=== PATIENT | male | born 1985 | race Two or more races ===

== ENCOUNTER 2018-10-09 06:15 | Observation (INO) | payer OTHER ==
[2018-10-09] VITALS (10 sets, daily range): BP systolic 108–132; BP diastolic 56–89
[~2018-10-09] VITALS: Ht 167.6 cm; Wt 135.6 kg
[2018-10-09] MEDS ORDERED: Dexamethasone 20mg/5ml IVP ONE (07:00)
[2018-10-09] MEDS ORDERED: ceFAZolin sod 1 GM in NS 55 ML IVPB ONE (07:00)
[2018-10-09] MEDS ORDERED: AMLODIPINE BES2.5 MG ORAL (07:32)
[2018-10-09] MEDS ORDERED: LR 1000ml 1,000 ML IVLG SCH (08:18)
--- NOTE | 2018-10-09 08:21 | Anethesia Preoperative Eval ---
Anesthesia Pre-op PMH/ROS General Date of Evaluation: Oct 09, 2018 Time of Evaluation: 09:27 Anesthesiologist: Isaias ASA Score: ASA 3 Mallampati Score Class I : Soft palate, uvula, fauces, pillars visible Class II: Soft palate, uvula, fauces visible Class III: Soft palate, base of uvula visible Class IV: Only hard plate visible Mallampati Classification: Class III Surgeon: Kiki Diagnosis: Back Pain Surgical Procedure: L4-S1 Microdiscectomy Anesthesia History: none Family History: no anesthesia problems Allergies: Coded Allergies: No Known Allergies (Unverified , 10/08/18) Medications: see eMAR Patient NPO?: Yes NPO Date: Oct 09, 2018 NPO Time: 2229 Past Medical History Cardiovascular: Reports: HTN Pulmonary: Reports: YOBANY - CPAP Gastrointestinal/Genitourinary: Reports: other - Fatty Liver Other: obesity - BMI 48 Anesthesia Pre-op Phys. Exam Physician Exam Last Vital Signs Date Time Temp Pulse Resp B/P (MAP) Pulse Ox O2 Delivery O2 Flow Rate FiO2 10/09/18 07:12 Room Air 10/09/18 07:05 97.4 82 18 132/89 (103) 96 Constitutional: NAD Neurologic: CN 2-12 intact Cardiovascular: RRR Respiratory: CTA Gastrointestinal: S/NT/ND Airway Exam Mallampati Score: Class III MO: limited ROM: full Teeth: intact Anesthesia Pre-op A/P Risk Assessment & Plan Assessment: ASA 3 Plan: GA, SED, GlideScope Go Status Change Before Surgery: No Pre-Antibiotics Dru grams Ancef IV Given Within 1 Hr of Incision: Yes Time Given: 09:46 Emmanuel Woodward MD Oct 09, 2018 08:21
[2018-10-09] MEDS ORDERED: Lacri-Lube Opth Oint 3.5gm ONE (08:25)
[2018-10-09] MEDS ORDERED: Thrombin 5000 units TOPIC ONE (08:25)
[2018-10-09] MEDS ORDERED: Gelfoam Size TOPIC ONE (08:25)
[2018-10-09] MEDS ORDERED: Lidocaine 1% Plain 30 ml INJ ONE ×3 (08:26→11:21)
[2018-10-09] MEDS ORDERED: Bacitracin 50000 Units Vial ONE (08:26)
[2018-10-09] MEDS ORDERED: Bupivacaine w/Epi 0.5% 30ml Vial INJ ONE (08:26)
[2018-10-09] MEDS ORDERED: oxyCODONE HCL/Acetaminophen 5/325mg ORAL PRN (08:30)
[2018-10-09] MEDS ORDERED: Acetaminophen (Non formulary) 100 ML IV ONE (08:30)
[2018-10-09] MEDS ORDERED: Atropine Sulfate 0.4mg/ml inj IVP PRN (08:30)
[2018-10-09] MEDS ORDERED: DiphenhydrAMINE 50mg/ml Inj IVP PRN (08:30)
[2018-10-09] MEDS ORDERED: Meperidine 50mg/ml Inj(FOR RIGORS ONLY) IVP PRN (08:30)
[2018-10-09] MEDS ORDERED: Labetalol 5mg/ml 20ml vial IV PRN (08:30)
[2018-10-09] MEDS ORDERED: Midazolam 2mg/2ml Inj IVP PRN (08:30)
[2018-10-09] MEDS ORDERED: HYDROcodone/Acetamin 7.5/325 tab ORAL PRN (08:30)
[2018-10-09] MEDS ORDERED: Hydromorphone 0.5mg/0.5ml inj IVP PRN (08:30)
[2018-10-09] MEDS ORDERED: fentaNYL 100 mcg/2 mL IV PRN (08:30)
[2018-10-09] MEDS ORDERED: LORazepam Inj 2mg/ml 1ml IV PRN (08:30)
[2018-10-09] MEDS ORDERED: Metoclopramide 10mg/2ml Inj IVP PRN (08:30)
[2018-10-09] MEDS ORDERED: HYDROcodone/Acetamin 5/325 tab ORAL PRN (08:30)
[2018-10-09] MEDS ORDERED: Ketorolac 30mg Inj IV PRN ×2 (08:30)
[2018-10-09] MEDS ORDERED: Dexamethasone 20mg/5ml ONE (08:53)
--- NOTE | 2018-10-09 09:22 | Pre-Procedure Note/Attestation ---
Pre-Procedure Note/Attestation Complete Prior to Procedure Planned Procedure: not applicable Procedure Narrative: microdiscectomy L4-L5, L5-S1 Indications for Procedure Pre-Operative Diagnosis: trauma HNP Attestation I attest that I discussed the nature of the procedure; its benefits; risks and complications; and alternatives (and the risks and benefits of such alternatives ), prior to the procedure, with the patient (or the patient's legal enrollment eligibility representative). I attest that, if there was a reasonable possibility of needing a blood transfusion, the patient (or the patient's legal enrollment eligibility representative) was given the [facility] standardized written summary, pursuant to the Joe [place] Blood Safety Act ([place] Health and Safety Code # 1645, as amended). I attest that I re-evaluated the patient just prior to the surgery and that there has been no change in the patient's H&P, except as documented below: Pedro Swanson MD Oct 09, 2018 09:22
[2018-10-09] MEDS ORDERED: HYDROcodone/Acetamin 10/325 tab ORAL PRN (09:30)
[2018-10-09] MEDS ORDERED: LR 1000ml ONE (09:30)
[2018-10-09] MEDS ORDERED: NS Irrig 1000ml ONE (09:30)
[2018-10-09] MEDS ORDERED: Sterile Water Irrig 1000ml IRRIG ONE (09:30)
[2018-10-09] MEDS ORDERED: HYDROmorphone 1mg/ml Carpuject SUBQ PRN (09:30)
[2018-10-09] MEDS ORDERED: Hydromorphone 0.5mg/0.5ml inj SUBQ PRN (09:30)
[2018-10-09] MEDS ORDERED: Zemuron 50mg/5ml Inj IV ONE (09:30)
[2018-10-09] MEDS ORDERED: Chloraseptic Spray 20mL Bottle ORAL PRN (09:30)
[2018-10-09] MEDS ORDERED: Propofol 1,000mg/ 100ml btl IV ONE (09:30)
[2018-10-09] MEDS ORDERED: Neostigmine 1mg/ml 10ml Inj ONE (09:30)
[2018-10-09] MEDS ORDERED: Lidocaine 1% MPF 10mg/ml 5ml ONE (09:40)
[2018-10-09] MEDS ORDERED: Sodium Chloride 10ml vial INJ ONE (09:40)
[2018-10-09] MEDS ORDERED: Dexamethasone 4mg/ml vial ONE (09:41)
[2018-10-09] MEDS ORDERED: fentaNYL 100 mcg/2 mL IV ONE ×3 (09:45→11:58)
--- NOTE | 2018-10-09 10:29 | Immediate Post-Op Evaluation ---
Immediate Post-Op Evalulation Immediate Post-Op Evalulation Procedure: L4-S1 Microdiscectomy Date of Evaluation: Oct 09, 2018 Time of Evaluation: 12:33 IV Fluids: 1100 Blood Products: 0 Estimated Blood Loss: 25 Urinary Output: 0 Blood Pressure Systolic: 112 Blood Pressure Diastolic: 70 Pulse Rate: 62 Respiratory Rate: 16 O2 Sat by Pulse Oximetry: 92 Temperature (Fahrenheit): 99 Pain Score (1-10): 2 Nausea: No Vomiting: No Complications 0 Patient Status: awake, reacts, patent, extubated, none Hydration Status: adequate Dru Grams Ancef IV Given Within 1 Hr of Incision: Yes Time Given: 09:46 Emmanuel Woodward MD Oct 09, 2018 10:29
[2018-10-09] MEDS ORDERED: Tamsulosin 0.4mg cap ORAL SCH (11:30)
[2018-10-09] MEDS ORDERED: Glycopyrrolate 0.2mg/ml 1ml Vial ONE (11:39)
--- NOTE | 2018-10-09 11:54 | Brief Operative Note ---
Immediate Post Operative Note Operative Note Pre-op Diagnosis: trauma HNP Procedure: Lumbar decompression - bilateral with discectmy L4-L5, L5-S1 local SSEP magnification body habitus Post-op Diagnosis: same as pre-op Findings: consistent w/pre-op dx studies Surgeon: Kiki MAYA Environmental Services Manager: Agatha DRIVER Additional Surgeons: Crissy AMYA Anesthesia: general Specimen: yes Complications: none Condition: stable Fluids: anesthesia Estimated Blood Loss: minimal Drains: none Implant(s) used?: No Pedro Swanson MD Oct 09, 2018 11:54
[2018-10-09] MEDS ORDERED: D5 1/2NS 1,000 ML IV SCH (11:55)
[2018-10-09] MEDS ORDERED: Naloxone 0.4mg/ml Inj IVP PRN (12:00)
--- NOTE | 2018-10-09 12:14 | Diagnostic Imaging Report ---
INDICATION: Pain, intraoperative, right lower extremity pain TECHNIQUE: Intraoperative imaging Fluoroscopy time: 7.3 seconds Total dose: 0.88850 mGym2 Total number of images: 2 COMPARISON: None FINDINGS: Intraoperative images demonstrate surgical tool projected posteriorly to what is presumably the L4-5 disc. IMPRESSION: Intraoperative imaging, as described
--- NOTE | 2018-10-09 16:00 | NUR ---
NURSE NOTES: Pt received s/p surgery to lower back , bandage is clean and intact. Slightly groggy but is able to have sensation to bilateral extremities, and fingers. Ice pack placed lower back. v/s 124/72 p 82 r 16 t97.8 . abdominal sounds present. Ice chips and small amount of juice provided
--- NOTE | 2018-10-09 16:41 | NUR ---
CASE MANAGEMENT: INITIAL REVIEW 10/09/2018 32 YO M PRESENTED TO HOSPITAL FOR SURGERY PMHx: LIVER DX. SLEEP APNEA. SI:LUMBAR HERNIATED DISC T 97.4 HR 82 RR 18 B/P 132/89 SATS 96% ON RA NO LABS TODAY IS:IVF @ 125 mL/HR NORVASC PO BID PEPCID PO BID CEFAZOLIN IV Q8H FLOMAX PO QLUNCH PATIENT ADMITTED TO MED/SURG 10/09/2018 @ 9045 PLAN OF CARE: Pre-op Diagnosis: trauma HNP Procedure: Lumbar decompression - bilateral with discectmy L4-L5, L5-S1 local SSEP magnification body habitus Post-op Diagnosis: same as pre-op Addendum: 10/09/18 at 1646 by Renee Goncalves CM INTERQUAL MET
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
--- NOTE | 2018-10-09 17:00 | Operative Note - Dictated ---
DATE OF OPERATION: 10/09/2018 SURGEON: Pedro Swanson, Ph.D., M.D. LEASE ATTENDANT: NEISHA Chandra. ANESTHESIA: Dr. Woodward, general with intubation. ADMITTING/PREOPERATIVE DIAGNOSIS: Posttraumatic lumbar herniated nucleus pulposus with radiculopathy. POSTOPERATIVE DIAGNOSIS: Posttraumatic lumbar herniated nucleus pulposus with radiculopathy OPERATIVE PROCEDURE: L4-L5, L5-S1, lumbar microdiskectomy/decompression, local anesthetic applied by surgeon, SSEP monitoring, high-powered magnification dissection, the patient's body habitus greater than 95th percentile for height, increasing complexity of surgery. Local anesthetic applied by surgeon. DESCRIPTION OF PROCEDURE: The patient was brought to the operating room and in supine position, general anesthesia with intubation was induced. IV antibiotics, IV Decadron were administered 30 minutes prior to the incision time. Lumbodorsal spine was sterilely prepped. A spinal needle was placed under sterile conditions into the subcutaneous tissue and a cross-table lateral radiograph was obtained under sterile conditions demonstrating the correct level for incision placement. Levels were marked. Needle removed. Back re-sterilely prepped and draped free in usual sterile fashion. A longitudinal midline incision over the appropriate intervals was sharply placed through dermis and epidermis. Electrocautery dissection was carried through extensor subcutaneous tissue to the level of the lumbodorsal fascia. It was incised bilaterally with subperiosteal dissection over the lamina inferior L4-L5, superior S1. Confirmation with markers and cross-table radiographs. L5-S1: Bilateral hemilaminotomies were performed with decompression with excision of the ligamentum flavum. Dissection was carried lateral to the dural tube to the level of the disk space. Decompression undertaken. No dural tears or leaks noted during the procedure. Bleeding bone cauterized with application of sterile wax. Minimal epidural bleeding controlled with minimal bipolar electrocauterization. SSEP monitoring stable. FloSeal applied. Attention was turned to the L4-L5 interval where bilateral hemilaminotomy was performed, decompression bilaterally of the L4-L5 interval. Dissection was carried right of midline lateral to the dural tube to the level of the disk herniation. Annulotomy was performed followed with microscopic diskectomy. No gross bleeding from the disk space anytime during the procedure. Marker placed into the disk space. Cross-table radiograph obtained demonstrating a correct position and procedure. Marker removed. Wound was copiously irrigated with antibiotic-containing saline. No dural tears or leaks noted anytime during the procedure. Sequential reapproximation of the lumbodorsal fascia, subcutaneous tissue in multiple layers. Dermis and epidermis further reapproximated with staple sutures. Local anesthetic 1% lidocaine without epinephrine was introduced into the dermal/subcutaneous interval bilateral lateral aspects of the incision for local anesthetic. Sterile bandage applied and maintained in place with tape. Pedro Swanson M.D. DR: Marko JOB#: [id number] CC:
--- NOTE | 2018-10-09 17:20 | NUR ---
NURSE NOTES: Pt assisted out of bed , and voided in restroom. Stated he was having difficulty urinating lying down. Did have an episode of vomitus, pt states that nausea medicine makes him vomit. Denies pain did verbalize a mild dull sensation to incision site. No complications after he walked , no dizziness or change in blood pressure
[2018-10-09] MEDS ORDERED: ceFAZolin sod 1 GM in D5W 55 ML IV SCH (18:00)
[2018-10-09] MEDS ORDERED: Docusate 100mg cap ORAL SCH (18:00)
--- NOTE | 2018-10-09 19:30 | NUR ---
NURSE NOTES: Received report from SHAYLA Figueroa and rounds done. Received pt sitting up in bed, AOx4, denies any pain, no distress noted. Surgical dressing C/D/I. Pt waiting for ride to be discharge tonight.
--- NOTE | 2018-10-09 19:40 | NUR ---
NURSE NOTES: Dr Swanson phoned to clarify orders for discharge regards to self ambulation, or ambulation with physical therapy. Pt walked and voided without complication, Dr Swanson returned call. Gave approval for discharge. Pt stated he received instructions prior to admission
--- NOTE | 2018-10-09 20:50 | NUR ---
NURSE NOTES: D/C pt to home per Dr. Swanson orders. VSS. Pt denies any pain, no distress noted. IV removed per protocol. Applied 4x4 gauze and tape, no bleeding noted. Discharge instruction, verbalized understanding of all instructions and teaching, all belongings taken by pt. Discharge pt via wheelchair accompanied by SHAYLA Gonzalez and friend. Pt in stable condition.
--- NOTE | 2018-10-10 11:39 | 48 Hour Post Anesthesia Eval ---
Post Anesthesia Evaluation Procedure: L4-S1 Microdiscectomy Date of Evaluation: Oct 10, 2018 Airway: patent Nausea: No Vomiting: No Pain Intensity: 1 Hydration Status: adequate Cardiopulmonary Status: at basleine Mental Status/LOC: patient returned to baseline Post-Anesthesia Complications: 0 Follow-up care needed: ready to discharge Danielle Pettit MD Oct 10, 2018 11:39
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
== END 2018-10-09 21:00 | disposition home or self-care (01) ==
LOC: SUR 06:15 → 3E 14:02
DX: M51.16 Intervertebral disc disorders with radiculopathy, lumbar region (principal); E66.01 Morbid (severe) obesity due to excess calories; I10 Essential (primary) hypertension; G47.33 Obstructive sleep apnea (adult) (pediatric); Z68.42 Body mass index [BMI] 45.0-49.9, adult; Z79.899 Other long term (current) drug therapy; Z82.3 Family history of stroke
CPT/HCPCS: 36415; 63075; 63076; 72020; 76000; 82962; 86850; 86900; 86901; G0378; J0690; J1100; J2001; J2250; J2405; J2704; J2710; J3010; 94003; 94150

== ENCOUNTER 2019-04-02 06:14 | Observation (INO) | payer OTHER ==
[~2019-04-02] VITALS: Ht 172.7 cm; Wt 136.1 kg
[2019-04-02] VITALS (11 sets, daily range): BP systolic 102–137; BP diastolic 50–74
[~2019-04-02 06:14] MED LIST: AMLODIPINE BES2.5 MG ORAL
[2019-04-02] MEDS ORDERED: ceFAZolin sod 1 GM in NS 55 ML IVPB ONE (07:00)
[2019-04-02] MEDS ORDERED: Dexamethasone 20mg/5ml IVP ONE (07:00)
[2019-04-02] MEDS ORDERED: HYDROcodone/Acetamin 10/325 tab ORAL PRN (07:30)
[2019-04-02] MEDS ORDERED: Hydromorphone 0.5mg/0.5ml inj SUBQ PRN (07:30)
[2019-04-02] MEDS ORDERED: HYDROmorphone 1mg/ml Carpuject SUBQ PRN (07:30)
[2019-04-02] MEDS ORDERED: LR 1000ml 1,000 ML IVLG SCH (08:52)
--- NOTE | 2019-04-02 08:56 | Anethesia Preoperative Eval ---
Anesthesia Pre-op PMH/ROS General Date of Evaluation: Apr 02, 2019 Time of Evaluation: 10:12 Anesthesiologist: Crissy ASA Score: ASA 3 Mallampati Score Class I : Soft palate, uvula, fauces, pillars visible Class II: Soft palate, uvula, fauces visible Class III: Soft palate, base of uvula visible Class IV: Only hard plate visible Mallampati Classification: Class III Surgeon: Kiki Diagnosis: Neck Pain Surgical Procedure: ACDF C5-6 Anesthesia History: none Family History: no anesthesia problems Allergies: Coded Allergies: No Known Allergies (Unverified , 04/02/19) Medications: see eMAR Patient NPO?: Yes NPO Date: Apr 01, 2019 NPO Time: 2100 Past Medical History Cardiovascular: Reports: HTN Pulmonary: Reports: YOBANY - CPAP Gastrointestinal/Genitourinary: Reports: other - Fatty Liver Other: obesity - Morbid BMI 48 Anesthesia Pre-op Phys. Exam Physician Exam Last Vital Signs Date Time Temp Pulse Resp B/P (MAP) Pulse Ox O2 Delivery O2 Flow Rate FiO2 04/02/19 07:04 Room Air 04/02/19 07:03 97.4 71 18 124/74 (91) 98 Constitutional: NAD Neurologic: CN 2-12 intact Cardiovascular: RRR Respiratory: CTA Gastrointestinal: S/NT/ND Airway Exam Mallampati Score: Class III MO: limited ROM: limited Teeth: intact Anesthesia Pre-op A/P Risk Assessment & Plan Assessment: ASA 3 Plan: GA, SED, GlideScope Go Status Change Before Surgery: No Pre-Antibiotics Dru Grams Ancef IV Given Within 1 Hr of Incision: Yes Time Given: 10:52 Emmanuel Woodward MD Apr 02, 2019 08:56
[2019-04-02] MEDS ORDERED: Lidocaine 1% MPF 10mg/ml 5ml ONE (08:59)
[2019-04-02] MEDS ORDERED: Dexamethasone 4mg/ml vial ONE (08:59)
[2019-04-02] MEDS ORDERED: Sodium Chloride 10ml vial INJ ONE (08:59)
[2019-04-02] MEDS ORDERED: DiphenhydrAMINE 50mg/ml Inj IVP PRN (09:00)
[2019-04-02] MEDS ORDERED: Ketorolac 30mg Inj IV PRN ×2 (09:00)
[2019-04-02] MEDS ORDERED: Midazolam 2mg/2ml Inj IVP PRN (09:00)
[2019-04-02] MEDS ORDERED: fentaNYL 100 mcg/2 mL IV PRN (09:00)
[2019-04-02] MEDS ORDERED: Atropine Sulfate 0.4mg/ml inj IVP PRN (09:00)
[2019-04-02] MEDS ORDERED: Acetaminophen (Non formulary) 100 ML IV ONE (09:00)
[2019-04-02] MEDS ORDERED: Hydromorphone 0.5mg/0.5ml inj IVP PRN (09:00)
[2019-04-02] MEDS ORDERED: oxyCODONE HCL/Acetaminophen 5/325mg ORAL PRN (09:00)
[2019-04-02] MEDS ORDERED: Meperidine 50mg/ml Inj(FOR RIGORS ONLY) IVP PRN (09:00)
[2019-04-02] MEDS ORDERED: HYDROcodone/Acetamin 7.5/325 tab ORAL PRN (09:00)
[2019-04-02] MEDS ORDERED: HYDROcodone/Acetamin 5/325 tab ORAL PRN (09:00)
[2019-04-02] MEDS ORDERED: LORazepam Inj 2mg/ml 1ml IV PRN (09:00)
--- NOTE | 2019-04-02 09:40 | Pre-Procedure Note/Attestation ---
Pre-Procedure Note/Attestation Complete Prior to Procedure Planned Procedure: not applicable Procedure Narrative: ACDF C5-C6, anterior plate Indications for Procedure Pre-Operative Diagnosis: Disc, pain Attestation I attest that I discussed the nature of the procedure; its benefits; risks and complications; and alternatives (and the risks and benefits of such alternatives ), prior to the procedure, with the patient (or the patient's legal rental sales representative). I attest that, if there was a reasonable possibility of needing a blood transfusion, the patient (or the patient's legal rental sales representative) was given the [facility] standardized written summary, pursuant to the Joe [place] Blood Safety Act ([place] Health and Safety Code # 1645, as amended). I attest that I re-evaluated the patient just prior to the surgery and that there has been no change in the patient's H&P, except as documented below: Pedro Swanson MD Apr 02, 2019 09:40
[2019-04-02] MEDS ORDERED: Propofol 1,000mg/ 100ml btl IV ONE (10:00)
[2019-04-02] MEDS ORDERED: Sterile Water Irrig 1000ml IRRIG ONE (10:00)
[2019-04-02] MEDS ORDERED: NS Irrig 1000ml ONE (10:00)
[2019-04-02] MEDS ORDERED: Labetalol 5mg/ml 20ml vial IV ONE (10:00)
[2019-04-02] MEDS ORDERED: LR 1000ml ONE (10:00)
[2019-04-02] MEDS ORDERED: Rocuronium Bromide 50mg/5ml Inj IV ONE (10:01)
[2019-04-02] MEDS ORDERED: Thrombin 5000 units TOPIC ONE (10:04)
[2019-04-02] MEDS ORDERED: Gelfoam Size TOPIC ONE (10:04)
[2019-04-02] MEDS ORDERED: Bacitracin 50000 Units Vial ONE (10:05)
--- NOTE | 2019-04-02 11:05 | Immediate Post-Op Evaluation ---
Immediate Post-Op Evalulation Immediate Post-Op Evalulation Procedure: ACDF C5-6 Date of Evaluation: Apr 02, 2019 Time of Evaluation: 13:37 IV Fluids: 900 LR Blood Products: 0 Estimated Blood Loss: 40 Urinary Output: 0 Blood Pressure Systolic: 113 Blood Pressure Diastolic: 59 Pulse Rate: 67 Respiratory Rate: 16 O2 Sat by Pulse Oximetry: 94 Temperature (Fahrenheit): 98 Pain Score (1-10): 2 Nausea: No Vomiting: No Complications 0 Patient Status: awake, reacts, patent, extubated, none Hydration Status: adequate Dru grams Ancef IV Given Within 1 Hr of Incision: Yes Time Given: 10:52 Emmanuel Woodward MD Apr 02, 2019 11:05
[2019-04-02] MEDS ORDERED: fentaNYL 100 mcg/2 mL IV ONE ×2 (11:23→12:10)
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
[2019-04-02] MEDS ORDERED: Lidocaine 1% Plain 30 ml INJ ONE (11:46)
[2019-04-02] MEDS ORDERED: Glycopyrrolate 0.2mg/ml 1ml Vial ONE (12:48)
[2019-04-02] MEDS ORDERED: Neostigmine 1mg/ml 10ml Inj ONE (12:48)
--- NOTE | 2019-04-02 12:59 | Brief Operative Note ---
Immediate Post Operative Note Operative Note Pre-op Diagnosis: Disc, pain Procedure: ACDF C5-C6, anterior plate body habitus Post-op Diagnosis: same as pre-op Findings: consistent w/pre-op dx studies Surgeon: Kiki Ph.D., M.D. Turf Manager: Agatha DRIVER Anesthesiologist: Crissy MAYA Anesthesia: general Specimen: yes Complications: none Condition: stable Fluids: anesthesia Estimated Blood Loss: minimal Drains: none Implant(s) used?: Yes Pedro Swanson MD Apr 02, 2019 12:59
[2019-04-02] MEDS ORDERED: Naloxone 0.4mg/ml Inj IVP PRN (13:00)
[2019-04-02] MEDS ORDERED: Chloraseptic Spray 20mL Bottle ORAL PRN (13:00)
[2019-04-02] MEDS ORDERED: D5 1/2NS 1,000 ML IV SCH (14:44)
--- NOTE | 2019-04-02 17:15 | Operative Note - Dictated ---
DATE OF OPERATION: 04/02/2019 PRIMARY SURGEON: Pedro Swanson, PhD, M.D. PROOF COINS INSPECTOR: NEISHA Marc ANESTHESIOLOGIST: Emmanuel Woodward M.D. ANESTHESIA: General with intubation. ADMITTING/PREOPERATIVE DIAGNOSIS: Discogenic cervical spine pain. POSTOPERATIVE DIAGNOSIS: Discogenic cervical spine pain. OPERATIVE PROCEDURE: 1. ACDF C5-C6 with anterior internal plate fixation. 2. Placement of osteopromotive material. 3. Placement of titanium graft. 4. Intraoperative fluoroscopy, interpreted by surgeon. 5. The patient's body habitus greater than 95th percentile for height, increasing complexity of surgery. SPECIMEN: Disk fragments to pathology. COMPLICATIONS: None. POSTOPERATIVE CONDITION: Good/stable. DESCRIPTION OF PROCEDURE: The patient was brought to the operating room and in the supine position, general anesthesia with intubation was induced. IV antibiotics and IV Decadron were administered 30 minutes prior to incision time. After appropriate positioning, cross-table imaging was obtained with markers in place on the skin only without penetration, demonstrating the correct levels for incision placement. Level was marked with sterile marking pen, after markers were removed (contralateral aspect of the neck). Anterior cervical spine was sterilely prepped and draped free in usual sterile fashion. A left transverse incision was sharply placed in the dermis and epidermis. Electrocautery dissection was carried through subcutaneous tissue to the platysmas muscle. It was identified, isolated, transected in line with the incision. Dissection was carried bluntly through the deep cervical and pretracheal fascia. Medial to the sternocleidomastoid muscle left and to the left carotid sheath. The disk space was identified, marker placed with the needle at 90 degree angle so as to avoid penetration greater than 3 mm. Cross-table imaging was obtained, demonstrating correct level. Level was marked. Dissection was carried caudad, one interval with noted marker placed in the line of fluoroscopic imaging at 4-5. The C5-C6 interval was identified, isolated, longus colli muscles elevated subperiosteal, not exceeding 3 mm from the medial lateral extent. Retractors were placed. Anterior diskectomy was performed with Midas Germain bur dissection of the endplates. Imaging was obtained with markers in place demonstrating the correct depth. Fit excellent. Titanium graft was packed with osteopromotive material containing in addition local autograft. Tamped into position. Position and fit excellent. Imaging demonstrating correct alignment and the device not penetrating posterior to the posterior cortical cho of the adjacent vertebra. A 10 pounds traction on the neck was removed. Anterior internal plate fixation in compressive fashion was undertaken under high-power magnification. Locked into position. Imaging obtained in AP and lateral planes under sterile conditions, demonstrated excellent alignment positioning. Wound irrigated with antibiotic-containing saline. Exploration revealed no obvious excoriation or laceration of vital structures. FloSeal applied. Sequential reapproximation of platysmas muscle, subcutaneous tissue with subsequent positioning of transverse surgical strips, sterile bandage maintained in place with tape. The patient was awakened and extubated in the operating room, and transported to postop recovery in good stable condition. Pedro Swanson M.D. DR: TH/KATHIE JOB#: [id number] CC:
[2019-04-02] MEDS ORDERED: ceFAZolin sod 1 GM in D5W 55 ML IV SCH (18:30)
--- NOTE | 2019-04-03 10:21 | Diagnostic Imaging Report ---
INDICATION: Pain, intraoperative TECHNIQUE: Intraoperative imaging Fluoroscopy time: 25.7 seconds Total dose: 0.16984 mGym2 Total number of images: 5 COMPARISON: None FINDINGS: Intraoperative images document placement of a disc spacer and anterior fusion hardware at C5-6 IMPRESSION: Intraoperative imaging, as described
--- NOTE | 2019-04-03 10:21 | Diagnostic Imaging Report ---
INDICATION: Pain, intraoperative TECHNIQUE: Intraoperative imaging Fluoroscopy time: 25.7 seconds Total dose: 0.48510 mGym2 Total number of images: 5 COMPARISON: None FINDINGS: Intraoperative images document placement of a disc spacer and anterior fusion hardware at C5-6 IMPRESSION: Intraoperative imaging, as described
[2019-04-03 10:49] VITALS: BP 148/76
--- NOTE | 2019-04-03 10:49 | 48 Hour Post Anesthesia Eval ---
Post Anesthesia Evaluation Procedure: ACDF C5-6 Date of Evaluation: Apr 03, 2019 Time of Evaluation: 10:45 Blood Pressure Systolic: 148 0: 76 Pulse Rate: 84 Respiratory Rate: 22 Temperature (Fahrenheit): 97.6 O2 Sat by Pulse Oximetry: 98 Airway: patent Nausea: No Vomiting: No Pain Intensity: 2 Hydration Status: adequate Cardiopulmonary Status: stable Mental Status/LOC: patient returned to baseline Follow-up Care/Observations: n/a Post-Anesthesia Complications: none Follow-up care needed: N/A Christian Campuzano MD Apr 03, 2019 10:49
== END 2019-04-02 19:50 | disposition home or self-care (01) ==
LOC: SUR 06:14 → 3E 14:43
DX: M54.2 Cervicalgia (principal); K76.0 Fatty (change of) liver, not elsewhere classified; V49.9XXA Car occupant (driver) (passenger) injured in unspecified traffic accident, initial encounter; Y92.9 Unspecified place or not applicable; K64.9 Unspecified hemorrhoids; E66.01 Morbid (severe) obesity due to excess calories; I10 Essential (primary) hypertension; G47.33 Obstructive sleep apnea (adult) (pediatric); M54.12 Radiculopathy, cervical region; M54.16 Radiculopathy, lumbar region; Z68.42 Body mass index [BMI] 45.0-49.9, adult; Z87.891 Personal history of nicotine dependence
CPT/HCPCS: 20936; 22554; 36415; 72040; 76000; 86850; 86900; 86901; 87081; C1713; G0378; J0690; J1100; J2001; J2250; J2405; J2704; J2710; J3010; J7120; 94003; 94150